=== PATIENT | female | born 1975 | race Caucasian/White ===

== ENCOUNTER 2024-02-22 08:13 | Outpatient (CLI) | payer OTHER, SELFPAY ==
--- OUTSIDE RECORDS SUMMARY | 2024-02-22 08:15 | XMS_ITS | Continuity of Care Document ---
Author Organization [facility] Address [address] [place] [phone] Assessment No assessment recorded. Plan of Treatment Reminders Order Date Submit Date Provider Last Modified By Organization Details Last Modified Time Details Appointments LAB WORK 2023 02:00P M Lab Not available Not available Not available Any 30 2023 09:30A M COLLIN ALONSO MD Not available Not available Not available Lab O&P (ova & parasit es), stool 2023 [facility], [address] [place] [address], [phone], 01/15/2024 08:05:59 C diff toxin A+B, qualita tive, stool 2023 024 [facility], [address] [place] [address], [phone], 01/08/2024 15:53:41 gastroi ntestin al pathoge ns panel, PCR, stool 2023 024 [facility], [address] [place] [address], [phone], 01/08/2024 18:28:51 Referral None recorde d. Procedures None recorde d. Surgeries None recorde d. Imaging None recorde d. Medication Orders Anti-Di arrheal (babs mide) 2 mg tablet [address], [id number], 2023 16:27:54 ondanse huma 4 mg disinte grating tablet 2023 024 [facility], [address] [place] [address], [id number], 01/18/2024 10:10:17 Patient TargetsNo targets recorded. Patient InstructionsNo instructions recorded. 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 Referring Physician: Sharmin Zhao [facility], Encounter Date: 10/15/2021 Problems Name Status Onset Date Resolution Date Notes Provider Name and Address Organization Details Recorded Time Depressive disorder Active 021 Sharmin Zhao NP [address] [facility] [place] [facility] [place], [address] , [employer] 02/17/2021 11:32:16 Cyst of left breast Active 021 benign simple cyst 4 o'clock 8cm from the nipple, measuring 9mm (per L breast U/S 07/01/21) Sharmin Zhao NP [address] [facility] [place], [phone] , [employer] 07/20/2021 19:50:29 Malignant neoplasm of female breast Active 024 Malignant neoplasm of lower-outer quadrant of right breast of female, estrogen receptor negative 10/27/2021 Cancer Staging: Clinical: Stage IIB COLLIN ALONSO MD [address] [facility] [place], [address] , [facility] [employer] 01/18/2024 23:21:12 Problem Notes None recorded. Procedures Surgical History Date Name Laterality Status Provider Name and Address Organization Details Recorded Time 12/25/19 23 Appendectomy completed COLLIN ALONSO MD [address] [facility] [place], [address], [facility] 01/18/2024 23:32:36 05/11/20 22 lumpectomy of right breast completed COLLIN ALONSO MD [address] [facility] [place], [address], [facility] 01/18/2024 23:35:21 10/02/19 20 Date of Last Mammogram completed Sharmin Zhao NP [address] [facility] [place], [address], [facility] 02/17/2021 11:38:30 01/31/20 16 Date of Last Pap Smear completed Sharmin Zhao NP [address] [facility] [place], [address], [facility] 02/17/2021 11:37:41 cholecystectomy completed Sharmin Zhao NP [address] [place], [address], [facility] 02/17/2021 11:35:26 Repair bladder defect completed Sharmin Zhao NP [address] [place], [address], [facility] 02/17/2021 11:36:40 Imaging Results None recorded. Procedure Notes None recorded. Medical Equipment None Reported. Allergies No known drug allergies Medications Name Sig Start Date Stop Date Status Note LastModified by Organization Details LastModified Time vitamin d3 25 mcg (1000 ut) TAKE ONE TABLET BY MOUTH ONCE DAILY 01/17 completed Not Available Not Available Not Available Anti-Diarr heal (loperamid e) 2 mg tablet Take 4 mg (2 tablets) after the first loose bowel movement , and 2 mg (1 tablet) after each loose bowel movement after the first dose has been taken. No more than 8 mg (4 tablets) should be taken in any 24-hour period. 12/24 completed Not Available Not Available Not Available loperamide 2 mg capsule TAKE 2 CAPS BY MOUTH AFTER THE FIRST LOOSE BOWEL MOVEMENT , AND 1 CAP AFTER EACH BOWEL MOVEMENT AFTER THE FIRST DOSE HAS BEEN TAKEN. MAX OF 4 CAPS PER DAY. 12/24 completed Not Available Not Available Not Available cetirizine 10 mg tablet take 1 tablet by oral route every day for runny nose, sneezing , and allergy. 12/17 completed Not Available Not Available Not Available sertraline 100 mg tablet 12/30 completed Not Available Not Available Not Available metronidaz ole 500 mg tablet TAKE 1 TABLET BY MOUTH EVERY 8 HOURS FOR 10 DAYS. 01/17 completed Not Available Not Available Not Available Tessalon Perles 100 mg capsule take 1 capsule by oral route 3 times every day to stop bad cough. 12/17 completed Not Available Not Available Not Available citalopram 20 mg tablet TAKE ONE TABLET BY MOUTH EVERY DAY 04/21 completed Not Available Not Available Not Available omeprazole 20 mg capsule,de layed release TAKE ONE CAPSULE BY MOUTH ONCE DAILY 01/17 completed Not Available Not Available Not Available Prozac 10 mg capsule take 1 capsule by oral route every day 10/28 completed Not Available Not Available Not Available Vitamin D2 1,250 mcg (50,000 unit) capsule take 1 capsule by oral route every week x 3 weeks 10/28 completed Not Available Not Available Not Available ondansetro n 4 mg disintegra ting tablet PLACE 1 TABLET EVERY 8 HOURS BY TRANSLIN GUAL ROUTE NEEDED. 01/17 completed Not Available Not Available Not Available clotrimazo le 1 % topical cream APPLY TO THE AFFECTED AND SURROUND ING AREAS OF SKIN BY TOPICAL ROUTE 2 TIMES PER DAY IN THE MORNING AND EVENING 04/21 completed Not Available Not Available Not Available sertraline 50 mg tablet take 1 tablet by oral route every day 12/30 completed Not Available Not Available Not Available cholecalci ferol (vitamin D3) 25 mcg (1,000 unit) capsule Take 1 capsule every day by oral route. 01/17 completed Not Available Not Available Not Available Bactrim DS 800 mg-160 mg tablet 1 tablet BID x 5 days 10/28 completed Not Available Not Available Not Available Sleep Aid (doxylamin e) 25 mg tablet As Directed for Insomnia 12/17 completed Not Available Not Available Not Available Nexplanon 68 mg subdermal implant Inject by subcutan eous route. 09/29 completed breast pain Not Available Not Available Not Available Mucinex Cold,Flu and Sore Throat 10 mg-20 mg-650 mg/20 mL oral liquid tsp on three times a day 12/30 completed Not Available Not Available Not Available Vitals Date Recorded Body weight Body mass index (BMI) Body height Respiratory rate Oxygen saturation Oxygen saturation in Arterial blood by Pulse oximetry Body temperature Heart rate Systolic blood pressure Diastolic blood pressure Provider Name and Address Organization Details Last Updated DateTime 4 87195.6 5 g 30.4 kg/m2 154.94 cm 22 /min 99 % 99 % 96.4 [degF] 62 /min 138 mm[Hg] 84 mm[Hg] Anya Cavazos [facility] [employer] [facility] 4 16:32:39 Social History Question Answer Notes LastModified by Organizat ion Details LastModified Time Tobacco Smoking Status Never Smoker Letty Briggssima menard [facility] [employer] [facility] 12/30/2020 20:32:17 What Is Your Level Of Alcohol Consumption? None Information not available 02/17/2021 What Is Your Level Of Caffeine Consumption? 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 With Others With And Son Information not available 02/17/2021 How Many Children Do You Have? 2 Information not available 02/17/2021 Are You Sexually Active? Yes Information not available 02/17/2021 Sex: Female Functional Status Question Answer Note LastModified by Organization D etails LastModified Time Are you able to care for yourself? Yes Information n ot available 02/17/2021 What is your exercise level? None Information not available 02/17/2021 Mental Status None recorded. Family History Relationship Description Onset Age of this Age Resolved Age Notes Mother Diabetes mellitus Maternal Grandmother Diabetes mellitus Medical History No medical history recorded. Gynecological History Statement/Question Response Abnormal Pap N Date of Last Mammogram 10/02/2019 Date of LMP 12/26/2020 Sexually Active? Y Menses Monthly N Date of Last Pap Smear 01/31/2016 Current Control Method Implant LMP Approximate Obstetrics History GPAL:G 5 P 3 0 2 2 Type Value Full Term 3 Spontaneous 2 Living 2 Total 5 Immunizations Vaccine Type Date Status Provider Name and Address Organization Details Recorded Time COVID-19, mRNA, LNP-S, PF, 30 mcg/0.3 mL dose 12/16/2020 completed MD Laila ALAS [facility] [place], [address], [facility] 12/14/2023 17:14:28 COVID-19, mRNA, LNP-S, PF, 30 mcg/0.3 mL dose 01/06/2021 completed MD Laila ALAS [facility], [address], [facility] 12/14/2023 17:14:29 COVID-19, mRNA, LNP-S, PF, 30 mcg/0.3 mL dose 09/23/2021 completed MD Laila ALAS [facility], [address], [facility], [facility] 12/14/2023 17:14:29 Pneumococcal conjugate PCV20, polysaccharide [id number] conjugate, adjuvant, PF 12/22/2022 completed MD Laila ALAS [facility], [address], [facility] 12/14/2023 17:14:29 COVID-19, mRNA, LNP-S, bivalent, PF, 30 mcg/0.3 mL dose 12/22/2022 completed MD Laila ALAS [facility], [address], [facility] 12/14/2023 17:14:29 Tdap 10/12/2018 completed MD Laila ALAS [facility], [address], [facility] 12/14/2023 17:14:29 Tdap 03/13/2009 completed MD Laila ALAS [facility], [address], [facility] 12/14/2023 17:14:29 Influenza, seasonal, injectable, preservative free 07/29/2011 completed COLLIN ALONSO MD [facility] [place], [address], [facility], [facility] 12/14/2023 17:14:29 Hep B, adult 11/23/2021 completed COLLIN ALONSO MD [facility] [place], [address], [facility], [facility] 12/14/2023 17:14:29 Hep B, adult 12/30/2021 completed COLLIN ALONSO MD [facility] [place], [address], [facility], [facility] 12/14/2023 17:14:29 influenza, injectable, quadrivalent, preservative free 10/12/2018 completed COLLIN ALONSO MD [address] [place] [address] [place], [address], [facility], [facility] 12/14/2023 17:14:29 influenza, injectable, quadrivalent, preservative free 12/22/2022 completed COLLIN ALONSO MD [address] [place] [address] [place], [address], [facility], [facility] 12/14/2023 17:14:29 Past Encounters Encounter ID Performer Location Encounter Start Date Encounter Closed Date Diagnosis/Indication Diagnosis SNOMED-CT Code [id number] MD [facility] [place] [address] 12/14/2023 16:15:37 12/14/2023 17:04:28 Nausea, vomiting and diarrhea 7997166 Diarrhea [id number] Health Concerns Section Related Observation LastModified by Organization Detai ls LastModified Time None Recorded Concern Status LastModified by Organization Details LastModified Time None Recorded Payers Encounter Date Sequence Insurance Name Policy Number Policy Zhang Covered Member ID Zhang Member ID Guarantor Name 12/14/2023 SLIDING FEE SCHEDULE - DISCOUNT Allison Duckworth Notes Date Note Type Note Provider Name and Address Organization Details Recorded Time 12/14/2023 text/html HPI Notes: 47 you here with nausea and vomiting for 2-3 days. Vomited 3 days ago x 2 - past 2 days not vomiting but still has nausea. Morning has worse symptoms. Taking pepto bismal and keeping fluids down. Has diarrhea also with this - 4-6 stools daily - initially pepto helped. Tried soup yesterday and symptoms returned. Today has had only clear fluids. No blood in stool. No abdominal pain now. No one else at home sick. No exposures known. ROS: chills,no body aches, small amt runny nose and mild ST, no cough, had abdominal pain initially - better now , no problems with urination, LMP Nov 2021 COLLIN ALONSO MD [address] [place], [address], [facility] 12/14/2023 17:20:15 OBGyn Episode No OBEpisode recorded.
--- OUTSIDE RECORDS SUMMARY | 2024-02-22 08:15 | XMS_ITS | Clinical Summary ---
Author Organization [facility] Address [place], [place] [address] Care Team Providers Care Manager Oracle Database Name Role Phone Leonora Lange MD Primary Care Provider Laila Osullivan MD Unavailable Unavailable Dimple Okeefe MD Unavailable [phone] Allergies Active Allergy Reactions Criticality Noted Date Comments Latex Itching 11/11/2021 Unlisted Allergen (Include Detail In Comments) Other - Describe In Comment Field 04/08/2022 Orthodoxy, not open to blood products Medications Medication Sig Dispensed Refills Start Date End Date Status acetaminophen (TYLENOL) 325 mg tablet Take 2 Tablets (650 mg) by mouth every 4 hours if needed for Pain (For mild pain.). Max acetaminophen dose: 4000mg in 24 hrs. 0 12/24/2022 Active lactobacillus combination no.4 (Probiotic) 3 billion cell cap Take by mouth once daily. Active omeprazole 20 mg tabletIndications: Gastroesophageal reflux disease, unspecified whether esophagitis present Take 1 Tablet (20 mg) by mouth once daily. 90 Tablet 1 08/04/2023 Active Active Problems Problem Noted Date Diagnosed Date Hypokalemia 12/23/2022 PNA (pneumonia) 11/30/2022 Obesity (BMI 30-39.9) 11/30/2022 Adrenal insufficiency due to cancer therapy 11/03 Acute appendicitis with perf oration and localized peritonitis, without abscess 11/11/2022 Sepsis 11/11/2022 Colitis 11/10/2022 History of breast cancer 11/10/2022 Malignant neoplasm of lower- outer quadrant of right breast of female, estrogen receptor negative 10/27/2021 Cancer Staging:Clinical:Stage IIB(cT2, cN0(f), cM0, G3, ER-, AL-, HER2-) - Unsigned Pathologic:No Stage Recommended(ypT0, pN0(sn), cM0, G3, ER-, AL-, HER2-) - Signed by Xiomara Her MD on 06/16/2022 Depressive disorder 02/17/2021 FLORA (stress urinary incontinence, female) 2018 Urgency of urination 08/21/2014 Prediabetes 08/05/2014 Female infertility 10/11/2010 Class 1 obesity with serious comorbidity and body mass index (BMI) of 33.0 to 33.9 in adult Encounters Date Type Department Care Team Description 01/09/2024 Orders Only [facility] Scanner 1 scan: (1-Ord) [facility], O and P FECAL RESULTS, 01/09/2024 12/22/2023 Orders Only [facility] Scanner 1 scan: (1-Ord) [facility], MULTIPLE RESULTS, 12/22/2023 12/22/2023 Orders Only [facility] Scanner 1 scan: (1-Ord) [facility], CDIFF, 12/22/2023 from Last 3 Months Immunizations Name Administration Dates Next Due COVID-19 vaccine ([employer] 30mcg/0.3mL) 12YO+ BIVALENT DICK MDAlba 12/22/2022 COVID-19 vaccine ([employer] 30mcg/0.3mL) PFRIK 09/23/2021,01/06/2021,12/16/2020 Hepatitis B (Adult) 12/30/2021,11/23/2021 Influenza, IIV3 (Age 6-35 mos) 07/29/2011 Influenza, IIV4 12/22/2022,10/12/2018 Pneumococcal Conj 20-valent (Prevnar 20) 023 Tdap 10/12/2018,03/13/2009 Family History Medical History Relation Name Comments Diabetes Father Diabetes Mother 60 yr old Cancer-breast No Family History Cancer-colon No Family History Cancer-ovarian No Family History Cancer-prostate No Family History Relation Name Status Comments Father Mother Social History Tobacco Use Types Packs/Day Years Used Date Smoking Tobacco: Never Passive Smoke Exposure: Past Smokeless Tobacco: Never Tobacco Cessation:Counseling Given: Not Answered Alcohol Use Standard Drinks/Week Comments No 0 (1 standard drink = 0.6 oz pur e alcohol) none PHQ-2 Answer Date Recorded PHQ-2 Score 5 11/25/2019 Social Connections Answer Date Recorded Frequency of Communication with Friends and Fami ly Not on file 09/22/2021 Financial Resource Strain Answer Date R ecorded Difficulty of Paying Living Expenses Not on file 09/22/2021 Difficulty of Paying Living Expenses Not on file 09/22/2021 Sex and Gender Information Value Date Recorded Sex Assigned at Not on file Gender Identity Not on file Sexual Orientation Not on file Obstetrics History Para Term AB IAB SAB Ectopic Multiple Livin g Live Births 5 3 3 0 2 0 2 0 0 3 3 Date Outcome GA Total Labor Labor/2nd/3rd Weight Sex Delivery Anes PTL Audrey A1 A5 Name Cl in SAB Feta l Fadumo se SAB Feta l Fadumo se Term Vag Sveta ng 12/05 Term 40w 0d 8h 00m/ 2.78 kg (6 lb 2 oz) M Vag Sveta ng 11/09 Term 38w 0d 2h 00m/ 2.72 kg (6 lb) M Vag Sveta ng Last Filed Vital Signs Vital Sign Reading Time Taken Comments Blood Pressure 114/68 08/17/2023 10:24 AM HIDE BUFFER Pulse 62 08/17/2023 10:15 AM HIDE BUFFER Temperature 37.3 ??C (99.1 ??F) 08/17/2023 1 0:15 AM HIDE BUFFER Respiratory Rate 16 08/17/2023 10:1 5 AM HIDE BUFFER Oxygen Saturation 100% 08/17/2023 10: 15 AM HIDE BUFFER Inhaled Oxygen Concentration - - Weight 76.5 kg (168 lb 11.2 oz) 023 10:15 AM HIDE BUFFER Height 154.9 cm (5' 0.98) 08/17/2023 1 0:15 AM HIDE BUFFER Body Mass Index 31.89 08/17/2023 10:15 AM HIDE BUFFER Plan of Treatment Health Maintenance Due Date Last Done Comments Pap test for age 21-65 08/21/2018 5, 08/21/2015, 03/13/2012, Additional history exists Colonoscopy through age 75 2018 Depression screening for age 12+ 11/26/2020 11/26/2019, 11/25/2019, 10/15/2018, Additional history exists COVID-19 vaccine series ( season) 2023 12/22/2022, 09/23/2021, 01/06/2021, Additional history exists Lipids for age 45-75 10/12/2023 10/12/2018, 08/05/2014, 07/27/2010 Zoster (shingles) series for age 50+ (1 of 2) 12/26/2023 Mammogram for age 45-75 04/18/2024 04/18/20, 10/27/2022, 10/11/2021, Additional history exists Influenza for age 50-64 06/02/2024 12/22/2022, 10/12 BMI (ht and wt on same day) for age 18+ 08/17/2024 08/17/2023, 08/04/2023, 04/18/2023, Additional history exists Tetanus booster 10/12/2028 10/12/2018, 03/13/2009 HIV for age 15-65 Completed 07/21/2011, 01/25/2011 Tdap Completed 10/12/2018, 03/13/2009 Hepatitis C screening for age 18-79 Completed 11/01/2021 Pneumococcal series for age 6-64 Aged Out 12/22/2022 No longer eligible based on patient's age to complete this topic Medical Devices Implanted Type Area Logistics Lead Device Identifier Shelf Expiration Date Model / Serial / Lot Sling Pelvic Exact Retropubic Continence - [id number] Implanted:Qty: 1 on 03/19/2019 by Hannah Cramer MD at [facility] N/A: Urethra J [employer] J [employer] Womens H / Uro 08/01/2019 TVTRL# / / [id number] Port Low Profile Slim W/6fr 1lmn Power[employer] - [id number] Implanted:Qty: 1 on 11/11/2021 by Laila Osullivan MD at [facility] Left: Chest [employer] 01/29/2023 [id number] / / [id number] Procedures Procedure Name Priority Date/Time Associated Diagnosis Comments SCAN-LABORATORY REPORT 01/09/2024 12:00 AM CDT SCAN-LABORATORY REPORT 12/22/2023 12:00 AM CDT SCAN-LABORATORY REPORT 12/22/2023 12:00 AM CDT XR MAMMO SOHAM UNI DIAG RIGHT STAT 04/18/2023 1:52 PM CDT Malignant neoplasm of lower-outer quadrant of right female breast, unspecified estrogen receptor status (HC) Breast pain, right ANTI HCV Today 11/01/2021 4:13 PM HIDE BUFFER Malignant neoplasm of right female breast, unspecified estrogen receptor status, unspecified site of breast (HC) LIPID PANEL W REFLEX MEASURED LDL Routine 10/12/2018 9:58 AM HIDE BUFFER Lipid screening BARREL PAINTER THIN PREP PAP SCREEN IMAGED Routine 08/21/2015 12:19 PM HIDE BUFFER Cervical cancer screening ANTI HIV 1/2 Routine 07/21/2011 10:22 AM CDT state, incidental from Last 3 Months or Most Recently Relevant to Health Maintenance Results * SCAN-LABORATORY REPORT (01/09/2024 12:00 AM CDT) Only the most recent of3 resultswithin the time period is included. Scanner OTHER * XR MAMMO SOHAM UNI DIAG RIGHT (04/18/2023 1:52 PM CDT) Anatomical Region Laterality Modality BREASTS, Breast Right Mammograph y 04/18/2023 2:43 PM CDT Impressions 04/18/2023 3:41 PM CDT Mild subcutaneous edema and skin thickening at 8 o'clock, 7 cm from the nipple in the RIGHT breast consistent with postradiation change. No suspicious cystic or solid mass or drainable fluid collection. RECOMMENDATIONS: Clinical follow-up is recommended. Annual BILATERAL screening mammogram is due October 2023. Results and recommendations were discussed with the patient at the time of the exam. BI-RADS Category 2: Benign Dictated by: Lucinda Forrester MD @04/18/2023 2:43:50 PM / CRL:tung PATIENTS: You will also receive a letter with your examination results in an easy to read format. ??If you have questions about your results, please contact your referring provider. Narrative 04/18/2023 3:41 PM CDT For Patients: As a result of the Cures Act, medical imaging exams and procedure reports are released immediately into your electronic medical record. ??You may view this report before your referring provider. ?? If you have questions, please contact your health care provider. DIGITAL DIAGNOSTIC RIGHT MAMMOGRAM USING TOMOSYNTHESIS AND COMPUTER-AIDED DETECTION, 04/18/2023 RIGHT BREAST ULTRASOUND, 04/18/2023 CLINICAL HISTORY: Focal pain at 4 o'clock and 7-8 o'clock in the RIGHT breast. Previous history of RIGHT breast cancer treated with lumpectomy and radiation therapy in May 2022. COMPARISON: Mammograms 10/27/2022 and 11/06/2019. TECHNIQUE: Digital RIGHT mammogram in CC and MLO projections. Tomosynthesis and CAD were used. Real-time ultrasound imaging of the RIGHT breast with imaging documentation. Scanning was performed by both the technologist and the radiologist. BREAST COMPOSITION: The breast is heterogeneously dense, which may obscure small masses. FINDINGS: Mammogram: There are expected post treatment changes including mild skin thickening over the outer breast. No suspicious masses, areas of architectural distortion or microcalcifications. Ultrasound: Targeted ultrasound of the lower outer and lower inner RIGHT breast is performed for the areas of pain as directed by the patient. Sas Architect images are saved at 4 o'clock, 5 cm from the nipple and 8 o'clock, 7 cm from the nipple. At the 8 o'clock location there is minimal skin thickening measuring up to 4 mm and subcutaneous edema. No suspicious cystic or solid mass or drainable fluid collection. Linda Messina NP MAMMO * ANTI HCV (11/01/2021 4:13 PM HIDE BUFFER) HEPATITIS C ANTIBODY Non-React stuart Non-React stuart 11/02/2021 1:04 AM HIDE BUFFER [facility] Comment:Antibodies to HCV no t detected; does not exclude the possibility of exposure to HCV. Blood BLOOD SPECIMEN / Unknown Venipuncture / Unknown 11/01/2021 4:13 PM HIDE BUFFER 11/01/2021 4:13 PM HIDE BUFFER Dimple Okeefe MD SEND OUTS [facility] [address] [place] [address], [place] * LIPID PANEL W REFLEX MEASURED LDL (10/12/2018 9:58 AM HIDE BUFFER) CHOLESTEROL,TOTAL 138 100 - 199 mg/dL 10/12/2018 6:01 PM HIDE BUFFER [facility] TRIGLYCERIDES 85 <150 mg/dL 10/12/2018 6:01 PM HIDE BUFFER [facility] HDL CHOLESTEROL 42 >40 mg/dL 9 6:01 PM HIDE BUFFER [facility] NON-HDL CHOLESTEROL 96 <145 mg/dl 10/12/2018 6:01 PM HIDE BUFFER [facility] CHOL/HDL RATIO 3.29 <4.50 10/12/2018 6:01 PM HIDE BUFFER [facility] LDL CHOLESTEROL 79 <=130 mg/dL 10/12/2018 6:01 PM HIDE BUFFER [facility] PROVIDER ORDERED STATUS RANDOM 10/12/2018 6:01 PM HIDE BUFFER [facility] Blood BLOOD SPECIMEN / Unknown Venipuncture / Unknown 10/12/2018 9:58 AM HIDE BUFFER 10/12/2018 9:58 AM HIDE BUFFER Leonora Lange MD CHEMISTRY [facility] [address] [place] [address], [place] * BARREL PAINTER THIN PREP PAP SCREEN IMAGED (08/21/2015 12:19 PM HIDE BUFFER) BARREL PAINTER CYTOLOGY See Anatomic Pathology case 08/26/2015 1:01 PM HIDE BUFFER [facility] Specimen (specimen) Non-Blood / Unknown 08/21/2015 12:19 PM HIDE BUFFER 08/21/2015 12:19 PM HIDE BUFFER Leonora Lange MD PATHOLOGY/CYTOL OGY [facility] [address] [place] [address], [place] * ANTI HIV 1/2 (07/21/2011 10:22 AM CDT) ANTI HIV 1/2 Non-reacti ve [facility] Blood specimen (specimen) BLOOD SPECIMEN / Unknown 07/21/2011 10:22 AM CDT 07/21/2011 10:13 AM CDT Leonora Lange MD SEND OUTS [facility] [place]NAL ZIP [id number] [address] from Last 3 Months or Most Recently Relevant to Health Maintenance Advance Directives Documents on File Type Date Recorded Patient Sas Architect Expl anation Healthcare Directive 04/12/2022 04/12/20, 04/12/2022 * Full Code (Latest Code Status on File) Date Activated Date Inactivated Comments 12/24/2022 7:02 AM 12/24/2022 4:02 PM Question Answer Comments Code Status Discussion: Reviewed Preferences * Full Code Date Activated Date Inactivated Comments 12/23/2022 6:27 PM 12/24/2022 7:02 AM Question Answer Comments Code Status Discussion: Reviewed Preferences * Full Code Date Activated Date Inactivated Comments 11/30/2022 8:58 PM 12/02/2022 6:32 PM Question Answer Comments Code Status Discussion: Reviewed Preferences * Full Code Date Activated Date Inactivated Comments 11/12/2022 12:48 AM 11/16/2022 3:39 PM Question Answer Comments Code Status Discussion: Reviewed Preferences * Full Code Date Activated Date Inactivated Comments 11/10/2022 12:56 AM 11/11/2022 11:54 PM Question Answer Comments Code Status Discussion: Reviewed Preferences Care Teams Manager Oracle Database Relationship Specialty Start Date End Date Leonora Lange MD [address] [place] [address] PCP - General Family Practice 07/19/11 Laila Osullivan MD [address] [place] [address] Surgery - General 10/20/21 Dimple Okeefe MD [address] [place] [address], [id number] [place] [address] Oncology 11/16/21
--- OUTSIDE RECORDS SUMMARY | 2024-02-22 08:15 | XMS_ITS | Continuity of Care Document ---
Author Organization [facility] Address [address] [place] [id number] Assessment No assessment recorded. Plan of Treatment Reminders Order Date Submit Date Provider Last Modified By Organization Details Last Modified Time Details Appointments LAB WORK 2023 02:00P M Lab Not available Not available Not available Any 30 2023 09:30A M COLLIN ALONSO MD Not available Not available Not available Lab C diff toxin A+B, qualita tive, stool 2023 024 [facility], [address] [place] [address], [phone], 01/18/2024 11:19:10 CMP, serum or plasma 2023 024 [facility], [address] [place] [address], [phone], 01/26/2024 15:28:10 TSH, serum, reflex free T4 2023 024 [facility], [address] [place] [address], [phone], 01/26/2024 15:28:43 H pylori Ag, stool 2023 024 [facility], [address] [place] [address], [phone], 01/26/2024 15:27:55 CBC w/ auto diff 2023 024 [facility], [address] [place], [phone], 01/18/2024 11:19:35 hemoglo bin A1C/hem oglobin total, QN, blood 2023 024 [facility], [address] [place], [phone], 01/18/2024 11:19:48 Referral None recorde d. Procedures None recorde d. Surgeries None recorde d. Imaging MAMMO, screeni ng, digital , bilater al 2023 024 [email or web address] Not available 02/15/2024 11:42:47 Medication Orders None recorde d. Patient TargetsNo targets recorded. 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 02/17/2021 11:32:16 Cyst of left breast Active 021 benign simple cyst 4 o'clock 8cm from the nipple, measuring 9mm (per L breast U/S 07/01/21) Sharmin Zhao NP [address] [place], [address] , [place] - [employer] 07/20/2021 19:50:29 Malignant neoplasm of female breast Active 024 Malignant neoplasm of lower-outer quadrant of right breast of female, estrogen receptor negative 10/27/2021 Cancer Staging: Clinical: Stage IIB COLLIN ALONSO MD [address] [facility] [place], [phone] , [facility] 01/18/2024 23:21:12 Problem Notes None recorded. Procedures Surgical History Date Name Laterality Status Provider Name and Address Organization Details Recorded Time 12/25/19 23 Appendectomy completed COLLIN ALONSO MD [address] [place] [address] [place], [address], [facility] 01/18/2024 23:32:36 05/11/20 22 lumpectomy of right breast completed COLLIN ALONSO MD [address] [place] [address] [place], [address], [facility] 01/18/2024 23:35:21 10/02/19 20 Date of Last Mammogram completed Sharmin Zhao NP [address] [place], [place] [address], [address], [facility] [employer] 02/17/2021 11:38:30 01/31/20 16 Date of Last Pap Smear completed Sharmin Zhao NP [address] [place] [address], [phone], [facility] 02/17/2021 11:37:41 cholecystectomy completed Sharmin Zhao NP [address] [place] [address], [phone], [facility] 02/17/2021 11:35:26 Repair bladder defect completed Sharmin Zhao NP [address] [place] [address], [phone], [facility] 02/17/2021 11:36:40 Imaging Results None recorded. Procedure [...] Available Not Available Vitals Date Recorded Body height Body mass index (BMI) Body weight Body temperature Oxygen saturation Oxygen saturation in Arterial blood by Pulse oximetry Heart rate Systolic blood pressure Diastolic blood pressure Provider Name and Address Organization Details Last Updated DateTime 4 154.94 cm 31.5 kg/m2 66943.2 1 g 96.3 [degF] 98 % 98 % 64 /min 141 mm[Hg] 86 mm[Hg] Mine Ocho[facility] [employer] [facility] 4 10:09:12 Social History Question Answer Notes LastModified by Organizat ion Details LastModified Time Tobacco Smoking Status Never Smoker Letty menard [facility] [employer] [facility] 12/30/2020 20:32:17 What Is Your Level [...] 02/17/2021 What is your exercise level? None [email or web address] Information not available 02/17/2021 Mental Status None [...] PF, 30 mcg/0.3 mL dose 12/16/2020 completed COLLIN ALONSO MD [address] [place] [address], [phone], [facility] [employer] 12/14/2023 17:14:28 COVID-19, mRNA, LNP-S, PF, 30 mcg/0.3 mL dose 01/06/2021 completed COLLIN ALONSO MD [address] [place] [address], [phone], [facility] [employer] 12/14/2023 17:14:29 COVID-19, mRNA, LNP-S, PF, 30 mcg/0.3 mL dose 09/23/2021 completed COLLIN ALONSO MD [address] [place] [address], [phone], [facility] [employer] 12/14/2023 17:14:29 Pneumococcal conjugate PCV20, polysaccharide [id number] conjugate, adjuvant, PF 12/22/2022 completed COLLIN ALONSO MD [address] [place] [address], [phone], [facility] 12/14/2023 17:14:29 COVID-19, mRNA, LNP-S, bivalent, PF, 30 mcg/0.3 mL dose 12/22/2022 completed COLLIN ALONSO MD [address] [place], [phone], [facility] 12/14/2023 17:14:29 Tdap 10/12/2018 completed COLLIN ALONSO MD [address] [place] [address] [place], [address], [facility] 12/14/2023 17:14:29 Tdap 03/13/2009 completed COLLIN ALONSO MD [address] [place] [address] [place], [phone], [facility] 12/14/2023 17:14:29 Influenza, seasonal, injectable, preservative free 07/29/2011 completed COLLIN ALONSO MD [address] [place] [address] [place], [address], [facility] 12/14/2023 17:14:29 Hep B, adult 11/23/2021 completed COLLIN ALONSO MD [address] [place] [address] [place], [phone], [facility] 12/14/2023 17:14:29 Hep B, adult 12/30/2021 completed COLLIN ALONSO MD [address] [place] [address] [place], [address], [facility] 12/14/2023 17:14:29 influenza, injectable, quadrivalent, preservative free 10/12/2018 completed COLLIN ALONSO MD [address] [place] [address] [place], [address], [facility] 12/14/2023 17:14:29 influenza, injectable, quadrivalent, preservative free 12/22/2022 completed COLLIN ALONSO MD [address] [place] [address] [place], [phone], [facility] 12/14/2023 17:14:29 Past Encounters Encounter ID Performer Location Encounter Start Date Encounter Closed Date Diagnosis/Indication Diagnosis SNOMED-CT Code [id number] MD [facility] [address] [place] [address] ERICKA PRATT KAREN [id number] 01/18/2024 10:03:22 01/18/2024 10:32:57 Diarrhea 63874005 Epigastric pain 53407712 History of malignant neoplasm of breast 886824072 Diabetes m ellitus screening 284697823 Elevated blood-pressure reading without diagnosis of hypertension 909520208 Health Concerns Section Related Observation LastModified by Organization Detai ls LastModified Time None Recorded Concern Status LastModified by Organization Details LastModified Time None Recorded Payers Encounter Date Sequence Insurance Name Policy Number Policy Zhang Covered Member ID Zhang Member ID Guarantor Name 01/18/2024 SLIDING FEE SCHEDULE - DISCOUNT Allison Faraz Duckworth Notes Date Note Type Note Provider Name and Address Organization Details Recorded Time 01/18/2024 text/html HPI Notes: 47 yo nepali speaking patient here for follow up of vomiting/diarrhea. Mine interpreting. Patient seen 1 month ago. Stool tests done at the time positive for C diff and Norovirus was having 4-6 stools daily at that time. Prescribed metronidazole therapy and reports that she finished the antibiotics. reports that things improved but that she still has some episodes of sensitive stomach and diarrhea. Estimates that she still has liquid stool every day or every other day multiple episodes. Patient also concerned about possible H pylori infection. Has some epigastric discomfort and acid. Patients PMH significant for hx of breast cancer - diagnosed Oct 2021 s/p chemo and lumpectomy. Patient reports that she lost her insurance and has not had mammogram follow up this year. Reviewed [facility] records and Last bilateral mammogram Oct 2022. Had unlateral R mammo for pain fall 2022. Also had CT scan chest/abdomen fall 2022 which was without evidence for malignancy. Had stable pulmonary nodule. COLLIN ALONSO MD [address] [place], [address], [facility] - [facility] 01/18/2024 23:49:50 OBGyn Episode No OBEpisode recorded.
--- NOTE | 2024-02-22 08:45 | CRLHL7_ITS ---
For Patients: As a result of the Century Cures Act, medical imaging exams and procedure reports are released immediately into your electronic medical record. You may view this report before your referring provider. If you have questions, please contact your health care provider. BILATERAL SCREENING MAMMOGRAM WITH COMPUTER-AIDED DETECTION AND TOMOSYNTHESIS TECHNIQUE: CC and MLO views were obtained. These mammographic images have been obtained using full-field digital technique. These mammographic images were interpreted with the benefit of computer-aided detection. Breast Tomosynthesis was used in this interpretation. COMPARISON FILM: 06/16/21, 11/06/19, 02/06/18. FINDINGS: The breasts are heterogeneously dense, which may obscure small masses. IMPRESSION: There is no radiographic evidence for malignancy. ASSESSMENT: BI-RADS Category 2: Benign RECOMMENDATION: Routine screening mammogram in 1 year. A lay language report of this examination will be provided to the patient. Luis Alfredo Sood M.D. Diagnostic Radiologist [email or web address] SP/Dictated by: Luis Alfredo Sood MD @ 02/22/2024 12:47:00 PM (Electronically Signed)
--- OUTSIDE RECORDS SUMMARY | 2024-02-29 09:18 | XMS_ITS | Continuity of Care Document ---
Author Organization [facility] Address [address] [place] [address] [place] [address] Assessment No assessment recorded. Plan of Treatment Reminders Order Date Submit Date Provider Last Modified By Organization Details Last Modified Time Details Appointments None recorded . Lab C diff toxin A+B, qualitat stuart, stool [facility]23 [facility] [address] [place], [place] [address], [address], 4 15:28:52 CMP, serum or plasma 2023 024 [facility], [address] [place] [address], [phone], 4 15:30:00 TSH, serum, reflex free T4 2023 024 [facility], [address] [place] [address], [phone], 4 15:30:09 H pylori Ag, stool 2023 024 [facility], [address] [place] [address], [phone], 4 15:29:27 CBC w/ auto diff 2023 024 [facility], [address] [place] [address] [place], [address], 4 15:29:37 hemoglob in A1C/hemo globin total, QN, blood 2023 024 [facility] [place] [facility], [address] [place], [address], 4 15:29:49 Referral None recorded . Procedures None recorded . Surgeries None recorded . Imaging MAMMO, screenin g, digital, bilatera l 2023 024 [facility] Not available 4 15:29:15 Medication Orders None recorded . Patient TargetsNo targets recorded. 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 Referring Physician: Sharmin Zhao [facility] Medicine, Encounter Date: 10/15/2021 Breast Surgery Referral for Primary invasive malignant neoplasm of female breast 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 Referring Physician: Sharmin Zhao [facility] Cindy, Encounter Date: 10/15/2021 Problems Name Status Onset Date Resolution Date Notes Provider Name and Address Organization Details Recorded Time Depressive disorder Active 021 Sharmin Zhao NP [address] [place], [address] , [place] 02/17/2021 11:32:16 Cyst of left breast Active 021 benign simple cyst 4 o'clock 8cm from the nipple, measuring 9mm (per L breast U/S 07/01/21) Sharmin Zhao NP [address] [place], [address] , [facility] 07/20/2021 19:50:29 Malignant neoplasm of female breast Active 024 Malignant neoplasm of lower-outer quadrant of right breast of female, estrogen receptor negative 10/27/2021 Cancer Staging: Clinical: Stage IIB COLLIN ALONSO MD [address] [facility] [place], [address] , [facility] 01/18/2024 23:21:12 Problem Notes None recorded. Procedures Surgical History Date Name Laterality Status Provider Name and Address Organization Details Recorded Time 12/25/19 23 [place] [address] [place] [address] [place], [address], [facility] 01/18/2024 23:32:36 05/11/20 22 lumpectomy of right breast completed COLLIN ALONSO MD [address] [place], [place] [address], [address], [facility] 01/18/2024 23:35:21 10/02/19 20 Date of [place] [address] [place], [place] [address], [address], [facility] 02/17/2021 11:38:30 01/31/20 16 Date of [place] [address] [place], [place] [address], [address], [facility] 02/17/2021 11:37:41 [place] [address] [place] [address] [place], [address], [facility] 02/17/2021 11:35:26 Repair bladder defect completed Sharmin Zhao NP [address] [place] [address], [address], [facility] 02/17/2021 11:36:40 Imaging Results None recorded. [...] Updated DateTime 4 154.94 cm 31.5 kg/m2 51663.2 1 g 96.3 [degF] 98 % 98 % 64 /min 141 mm[Hg] 86 mm[Hg] Mine Ochoa [facility] [employer] [facility] 4 10:09:12 Social History Question Answer Notes LastModified by Organizat ion Details LastModified Time Tobacco Smoking Status Never Smoker Letty [place] - [facility] 12/30/2020 20:32:17 What Is Your Level Of [...] mL dose 12/16/2020 [place] [address] [place] [address], [phone], [facility] 12/14/2023 17:14:28 COVID-19, mRNA, LNP-S, PF, 30 mcg/0.3 mL dose 01/06/2021 [place] [address] [place] [address], [phone], [facility] [employer] 12/14/2023 17:14:29 COVID-19, mRNA, LNP-S, PF, 30 mcg/0.3 mL dose 09/23/2021 [place] [address] [place] [address], [phone], [facility] 12/14/2023 17:14:29 Pneumococcal conjugate PCV20, polysaccharide [id number] conjugate, adjuvant, PF 12/22/2022 [place] [address] [place] [address], [phone], [facility] [employer] 12/14/2023 17:14:29 COVID-19, mRNA, LNP-S, bivalent, PF, 30 mcg/0.3 mL dose 12/22/2022 [place] [address] [place] [address], [phone], [facility] 12/14/2023 17:14:29 Tdap 10/12/2018 completed COLLIN ALONSO MD [address] [place], [address], [facility] 12/14/2023 17:14:29 Tdap 03/13/2009 completed COLLIN ALONSO MD [address] [place], [address], [facility] 12/14/2023 17:14:29 Influenza, seasonal, injectable, preservative free 07/29/2011 completed COLLIN ALONSO MD [address] [place] [address] [place], [address], [facility] 12/14/2023 17:14:29 Hep B, adult 11/23/2021 completed COLLIN ALONSO MD [address] [place] [address] [place], [address], [facility] 12/14/2023 17:14:29 Hep B, adult 12/30/2021 completed COLLIN ALONSO MD [address] [place] [address] [place], [address], [facility] 12/14/2023 17:14:29 influenza, injectable, quadrivalent, preservative free 10/12/2018 completed COLLIN ALONSO MD [address] [place] [address] [place], [address], [facility] 12/14/2023 17:14:29 influenza, injectable, quadrivalent, preservative free 12/22/2022 completed COLLIN ALONSO MD [address] [place] [address] [place], [address], [facility] 12/14/2023 17:14:29 Past Encounters Encounter ID Performer Location Encounter Start Date Encounter Closed Date Diagnosis/Indication Diagnosis SNOMED-CT Code [id number] MD [facility] [address] [place] [address] ERICKA MEDRANOKAREN [place]MP[place]RIES [id number] 01/18/2024 10:03:22 01/18/2024 10:32:57 Diarrhea [id number] Epigastric pain [id number] History of malignant neoplasm of breast 872370816 Diabetes m ellitus screening 106801024 Elevated blood-pressure reading without diagnosis of hypertension [id number] Health Concerns Section Related Observation LastModified by Organization Detai ls LastModified Time None Recorded Concern Status LastModified by Organization Details LastModified Time None Recorded Payers Encounter Date Sequence Insurance Name Policy Number Policy Zhang Covered Member ID Zhang Member ID Guarantor Name 01/18/2024 SLIDING FEE SCHEDULE - DISCOUNT Allison Duckworth Notes Date Note Type Note Provider Name and Address Organization Details Recorded Time 01/18/2024 text/html HPI Notes: 47 yo pashto speaking patient here for follow up of vomiting/diarrhea. Mine montez. Patient seen 1 month ago. Stool tests [...] Had stable pulmonary nodule. COLLIN ALONSO MD [facility] [place], [address], [facility] 01/18/2024 23:49:50 OBGyn Episode No OBEpisode recorded.
--- OUTSIDE RECORDS SUMMARY | 2024-02-29 09:18 | XMS_ITS | Clinical Summary ---
Author Organization [facility] Address [place], [place] [address] Care Team Providers Care Scientist Electronics Name Role Phone Leonora Lange MD Primary Care Provider Laila Osullivan MD Unavailable Unavailable Dimple Okeefe MD Unavailable Allergies Active Allergy Reactions Criticality Noted Date Comments Latex Itching 11/11/2021 Unlisted Allergen (Include Detail In Comments) Other - Describe In Comment Field 04/08/2022 Cheondoism, not open to blood products Medications Medication [...] Cancer Staging:Clinical:Stage IIB(cT2, cN0(f), cM0, G3, ER-, HI-, HER2-) - Unsigned Pathologic:No Stage Recommended(ypT0, pN0(sn), cM0, G3, ER-, HI-, HER2-) - Signed by Xiomara Her MD on 06/16/2022 Depressive disorder 02/17/2021 FLORA (stress urinary incontinence, female) 2018 Urgency of urination 08/21/2014 Prediabetes 08/05/2014 Female infertility 10/11/2010 Class 1 obesity with serious comorbidity and body mass index (BMI) of 33.0 to 33.9 in adult Encounters Date Type Department Care Team Description 01/09/2024 Orders Only [facility] Scanner 1 scan: (1-Ord) [facility], O and P FECAL RESULTS, 01/09/2024 12/22/2023 Orders Only [facility] Scanner 1 scan: (1-Ord) [facility], MULTIPLE RESULTS, 12/22/2023 12/22/2023 Orders Only [facility] Scanner 1 scan: (1-Ord) [facility], CDIFF, 12/22/2023 from Last 3 Months Immunizations Name Administration Dates Next Due COVID-19 vaccine ([employer] 30mcg/0.3mL) 12YO+ BIVALENT DICK MDAlba 12/22/2022 COVID-19 vaccine ([employer] 30mcg/0.3mL) PFRIK 09/23/2021,01/06/2021,12/16/2020 Hepatitis B (Adult) [...] Comments Blood Pressure 114/68 08/17/2023 10:24 AM CONTINUITY CLERK Pulse 62 08/17/2023 10:15 AM CONTINUITY CLERK Temperature 37.3 ??C (99.1 ??F) 08/17/2023 1 0:15 AM CONTINUITY CLERK Respiratory Rate 16 08/17/2023 10:1 5 AM CONTINUITY CLERK Oxygen Saturation 100% 08/17/2023 10: 15 AM CONTINUITY CLERK Inhaled Oxygen Concentration - - Weight 76.5 kg (168 lb 11.2 oz) 023 10:15 AM CONTINUITY CLERK Height 154.9 cm (5' 0.98) 08/17/2023 1 0:15 AM CONTINUITY CLERK Body Mass Index 31.89 08/17/2023 10:15 AM CONTINUITY CLERK Plan of Treatment Health Maintenance Due Date [...] this topic Medical Devices Implanted Type Area Inside Wirer Device Identifier Shelf Expiration Date Model / Serial / Lot Sling Pelvic Exact Retropubic Continence - [id number] Implanted:Qty: 1 on 03/19/2019 by Hannah Cramer MD at [facility] N/A: Urethra J [employer] Womens H / Uro 08/01/2019 TVTRL# / / [id number] Port Low Profile Slim W/6fr 1lmn [employer] - [id number] Implanted:Qty: 1 on 11/11/2021 by Laila Osullivan MD at [facility] Left: Chest [employer] 01/29/2023 [id number] / / [id number] Procedures Procedure Name Priority Date/Time Associated Diagnosis Comments SCAN-LABORATORY REPORT 01/09/2024 12:00 AM CDT SCAN-LABORATORY REPORT 12/22/2023 12:00 AM CDT SCAN-LABORATORY REPORT 12/22/2023 12:00 AM CDT XR MAMMO SOHAM UNI DIAG RIGHT STAT 04/18/2023 1:52 PM CDT Malignant neoplasm of lower-outer quadrant of right female breast, unspecified estrogen receptor status (HC) Breast pain, right ANTI HCV Today 11/01/2021 4:13 PM CONTINUITY CLERK Malignant neoplasm of right female breast, unspecified estrogen receptor status, unspecified site of breast (HC) LIPID PANEL W REFLEX MEASURED LDL Routine 10/12/2018 9:58 AM CONTINUITY CLERK Lipid screening ORDER DISPATCHER CHIEF THIN PREP PAP SCREEN IMAGED Routine 08/21/2015 12:19 PM CONTINUITY CLERK Cervical cancer screening ANTI HIV 1/2 Routine [...] of pain as directed by the patient. Assurance Senior Manager images are saved at 4 o'clock, 5 cm from the nipple and 8 o'clock, 7 cm from the nipple. At the 8 o'clock location there is minimal skin thickening measuring up to 4 mm and subcutaneous edema. No suspicious cystic or solid mass or drainable fluid collection. Linda Messina NP MAMMO * ANTI HCV (11/01/2021 4:13 PM CONTINUITY CLERK) HEPATITIS C ANTIBODY Non-React stuart Non-React stuart 11/02/2021 1:04 AM CONTINUITY CLERK [facility] Comment:Antibodies to HCV no t detected; does not exclude the possibility of exposure to HCV. Blood BLOOD SPECIMEN / Unknown Venipuncture / Unknown 11/01/2021 4:13 PM CONTINUITY CLERK 11/01/2021 4:13 PM CONTINUITY CLERK Dimple Okeefe MD SEND OUTS [facility] [address] [place] [address], [place] * LIPID PANEL W REFLEX MEASURED LDL (10/12/2018 9:58 AM CONTINUITY CLERK) CHOLESTEROL,TOTAL 138 100 - 199 mg/dL 10/12/2018 6:01 PM CONTINUITY CLERK [facility] TRIGLYCERIDES 85 <150 mg/dL 10/12/2018 6:01 PM CONTINUITY CLERK [facility] HDL CHOLESTEROL 42 >40 mg/dL 9 6:01 PM CONTINUITY CLERK [facility] NON-HDL CHOLESTEROL 96 <145 mg/dl 10/12/2018 6:01 PM CONTINUITY CLERK [facility] CHOL/HDL RATIO 3.29 <4.50 10/12/2018 6:01 PM CONTINUITY CLERK [facility] LDL CHOLESTEROL 79 <=130 mg/dL 10/12/2018 6:01 PM CONTINUITY CLERK [facility] PROVIDER ORDERED STATUS RANDOM 10/12/2018 6:01 PM CONTINUITY CLERK [facility] Blood BLOOD SPECIMEN / Unknown Venipuncture / Unknown 10/12/2018 9:58 AM CONTINUITY CLERK 10/12/2018 9:58 AM CONTINUITY CLERK Leonora Lange MD CHEMISTRY [facility] [address] [place] [address], [place] * ORDER DISPATCHER CHIEF THIN PREP PAP SCREEN IMAGED (08/21/2015 12:19 PM CONTINUITY CLERK) ORDER DISPATCHER CHIEF CYTOLOGY See Anatomic Pathology case 08/26/2015 1:01 PM CONTINUITY CLERK [facility] Specimen (specimen) Non-Blood / Unknown 08/21/2015 12:19 PM CONTINUITY CLERK 08/21/2015 12:19 PM CONTINUITY CLERK Leonora Lange MD PATHOLOGY/CYTOL OGY [facility] [address] [place] [address], [place] * ANTI HIV 1/2 (07/21/2011 10:22 AM CDT) ANTI HIV 1/2 Non-reacti ve [facility] Blood specimen (specimen) BLOOD SPECIMEN / Unknown 07/21/2011 10:22 AM CDT 07/21/2011 10:13 AM CDT Leonora Lange MD [facility] [place]NAL ZIP [address] [address] from Last 3 Months or Most Recently Relevant to Health Maintenance Advance Directives Documents on File Type Date Recorded Patient Assurance Senior Manager Expl anation Healthcare Directive 04/12/2022 04/12/20, 04/12/2022 [...] Code Status Discussion: Reviewed Preferences Care Teams Scientist Electronics Relationship Specialty Start Date End Date Leonora Lange MD [address] [place] [address] PCP - General Family Practice 07/19/11 Laila Osullivan MD [address] [place] [address] Surgery - General 10/20/21 Dimple Okeefe MD [address] [place] [address], [id number] [place] [address] Oncology 11/16/21
--- OUTSIDE RECORDS SUMMARY | 2024-02-29 09:18 | XMS_ITS | Data Portability ---
Author Organization KAREN - [facility] Address [address] [place] [address] [place] [address] Assessment No assessment recorded. Plan of Treatment Reminders Order Date Submit Date Provider Last Modified By Organization Details Last Modified Time Details Appointments None recorded . Lab C diff toxin A+B, qualitat stuart, stool 2023 024 [email or web address] [address] [place] [address] [place], [address], 4 15:28:52 CMP, serum or plasma 2023 024 [facility], [address] [place] [address], [address], 4 15:30:00 TSH, serum, reflex free T4 2023 024 [facility], [address] [place] [address], [address], 4 15:30:09 H pylori Ag, stool 2023 024 [facility], [address] [place] [address], [address], 4 15:29:27 CBC w/ auto diff 2023 024 [facility], [address] [place], [place] [address], [address], 4 15:29:37 hemoglob in A1C/hemo globin total, QN, blood 2023 024 [email or web address] [place] [facility], [address] [place], [place] [address], [address], 4 15:29:49 O&P (ova & parasite s), stool 2023 024 [facility], [address] [place], [place] [address], [address], 4 08:05:59 C diff toxin A+B, qualitat stuart, stool 2023 024 [facility], [address] [place], [place] [address], [address], 4 15:53:41 gastroin testinal pathogen s panel, PCR, stool 2023 024 [facility], [address] [place] [address] K[place], [address], 4 18:28:51 TSH, serum or plasma - Please note that patient also has BMP not only TSH 2020 021 [email or web address] Not available 1 14:53:56 BMP, blood 2020 021 [email or web address] [facility], [address] [place] [address] [place], [address], 1 21:22:34 Referral None recorded . Procedures None recorded . Surgeries None recorded . Imaging MAMMO, screenin g, digital, bilatera l 2023 024 [email or web address] Not available 4 15:29:15 US, breast, unilater al - Right breast ultrasou nd - Citizen Of [place]- speaking , MARIBEL 2020 021 [facility] Non Stat, [address], [place], [address], 2 10:45:31 MAMMO, screenin ggurwindera l - Citizen Of [place] speaking - interpre ter 2020 021 LUCIE Not available 15:04:48 Medication Orders Anti-Olivia rrheal (loperam lurdes) 2 mg tablet 2023 [address], [address], 4 16:27:54 ondanset karla 4 mg disinteg rating tablet [address], [address], 4 10:10:17 cholecal ciferol (vitamin D3) 25 mcg (1,000 unit) capsule [address], [address], 4 10:09:53 clotrima zole 1 % topical cream [email or web address], [address], 1 12:02:38 citalopr am 20 mg tablet [email or web address], [address], 1 12:02:28 Patient TargetsNo targets recorded. 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, Encounter Date: 10/15/2021 Results Created Date Observation Date Name Description Value Unit Range Abnormal Flag LastModifiedBy Organization Detail LastModifiedTime 01/07/20 21 01/06/2021 BMP, blood creatinine Not Available [facility] [address] [place], [address], 12/30/2020 21:21:45 01/14/20 21 01/13/2021 TSH, serum or plasm a TSH 1.14 Not Available [address], [address], 01/14/2021 12:20:37 01/14/20 21 01/13/2021 BMP, blood creatinine 0.62 Not Available [facility] [address] [facility], [address], 01/14/2021 11:08:15 06/25/20 21 06/16/2021 MAMMO , scree brandt, bilat eral No observ ation record ed. [email or web address] [facility] [address] [place], [address], 07/20/2021 19:51:04 07/16/20 21 07/01/2021 US, breas t, unila teral No observ ation record ed. [email or web address] [facility] Non Stat [address] [facility] [place], [address], 07/20/2021 19:50:36 10/11/19 22 10/08/2021 MAMMO , diagn ostic , digit al, unila teral No observ ation record ed. Not Available 10/15/2021 10:36:53 10/15/19 22 10/11/2021 biops y, breas t, w/ ultra sound bob nce (PROC ) No observ ation record ed. Not Available 10/15/2021 13:42:21 11/01/19 22 10/27/2021 MRI, breas t, bilat eral, w/wo contr ast No observ ation record ed. [email or web address] Not Available 11/01/2021 13:23:53 Result Notes None recorded. Problems Name Status Onset Date Resolution Date Notes Provider Name and Address Organization Details Recorded Time Depressive disorder Active 021 Sharmin Zhao NP [address] [place], [address] , [employer] 02/17/2021 11:32:16 Cyst of left breast Active 021 benign simple cyst 4 o'clock 8cm from the nipple, measuring 9mm (per L breast U/S 07/01/21) Sharmin Zhao NP [address] [place], [address] , [employer] 07/20/2021 19:50:29 Malignant neoplasm of female breast Active 024 Malignant neoplasm of lower-outer quadrant of right breast of female, estrogen receptor negative 10/27/2021 Cancer Staging: Clinical: [place] [address] [place] [address], [address] , [employer] 01/18/2024 23:21:12 Problem Notes None recorded. Procedures Surgical History Date Name Laterality Status Provider Name and Address Organization Details Recorded Time 12/25/19 23 Appendectomy completed [facility]IN [facility] [place] [facility] [place], [address], [employer] 01/18/2024 23:32:36 05/11/20 22 lumpectomy of right breast completed COLLIN [facility]ONSO [place] [facility] [place], [address], [employer] 01/18/2024 23:35:21 10/02/19 20 Date of Last Mammogram completed Sharmin Zhao NP [address] [facility], [address], [facility] 02/17/2021 11:38:30 01/31/20 16 Date of Last Pap Smear completed Sharmin Zhao, RIC [address] [facility] [place], [address], [facility] [employer] [facility] 02/17/2021 11:37:41 cholecystectomy completed Sharmin Zhao, RIC [address] [facility] [place], [address], [facility] [employer] [facility] 02/17/2021 11:35:26 Repair bladder defect completed Sharmin Zhao, RIC [address] [facility] [place], [address], [facility] [employer] [facility] 02/17/2021 11:36:40 Imaging Results Imaging Date Name Status LastModified by Organiz [facility] Details LastModified Time 06/16/2021 MAMMO, screening, bilateral completed [facility] [address] [place], [address], 07/20/2021 19:51:04 07/01/2021 US, breast, unilateral completed [facility] Non Stat [address] [place] [address], [address], 07/20/2021 19:50:36 10/08/2021 MAMMO, diagnostic, digital, unilateral completed Information not available 10/15/2021 10:36:53 10/11/2021 biopsy, breast, w/ ultrasound guidance (PROC) completed Information not available 10/15/2021 13:42:21 10/27/2021 MRI, breast, bilateral, w/wo contrast completed [email or web address] Information not available 11/01/2021 13:23:53 Procedure Notes None recorded. Medical Equipment None [...] Not Available Not Available Vitals Date Recorded Heart rate Body weight Body mass index (BMI) Body height Systolic blood pressure Diastolic blood pressure Provider Name and Address Organization Details Last Updated DateTime 1 72 /min 57610.2 g 34.7 kg/m2 154.94 cm 124 mm[Hg] 70 mm[Hg] Letty Hortop [place] Q[place]ary 20:36:20 Date Recorded Body height Body mass index (BMI) Body weight Provider Name and Address Organization Details Last Updated DateTime 02/17/2021 154.94 cm 34 kg/m2 04751.63 g Sharmin Zhao, RIC [address] [place], [address], [facility] [employer] 02/17/2021 11:47:17 Date Recorded Body height Body mass index (BMI) Body weight Heart rate Systolic blood pressure Diastolic blood pressure Provider Name and Address Organization Details Last Updated DateTime 1 154.94 cm 36.8 kg/m2 06385.5 1 g 59 /min 108 mm[Hg] 80 mm[Hg] Sharmin Zhao NP [address] [place], [address], [facility] [employer] 1 12:01:32 Date Recorded Body weight Body mass index (BMI) Body height Respiratory rate Oxygen saturation Oxygen saturation in Arterial blood by Pulse oximetry Body temperature Heart rate Systolic blood pressure Diastolic blood pressure Provider Name and Address Organization Details Last Updated DateTime 4 82394.6 5 g 30.4 kg/m2 154.94 cm 22 /min 99 % 99 % 96.4 [degF] 62 /min 138 mm[Hg] 84 mm[Hg] Ayna Cavazos [facility] [employer] 4 16:32:39 Date Recorded Body height Body mass index (BMI) Body weight Body temperature Oxygen saturation Oxygen saturation in Arterial blood by Pulse oximetry Heart rate Systolic blood pressure Diastolic blood pressure Provider Name and Address Organization Details Last Updated DateTime 4 154.94 cm 31.5 kg/m2 70135.2 1 g 96.3 [degF] 98 % 98 % 64 /min 141 mm[Hg] 86 mm[Hg] Mineishan montoya [facility] [employer] 4 10:09:12 Date Recorded Systolic blood pressure Diastolic blood pressure Provider Name and Address Organization Details Last Updated DateTime 05/17/2017 110 mm[Hg] 69 mm[Hg] Not Available [facility] 04/20/2020 12:57:53 Date Recorded Systolic blood pressure Diastolic blood pressure Provider Name and Address Organization Details Last Updated DateTime 01/14/2019 118 mm[Hg] 72 mm[Hg] Not Available [employer] 0 04/20/2020 12:57:53 Date Recorded Systolic blood pressure Diastolic blood pressure Provider Name and Address Organization Details Last Updated DateTime 10/12/2017 137 mm[Hg] 86 mm[Hg] Not Available [employer] 0 04/20/2020 12:57:53 Social History Question Answer Notes LastModified by Organizat ion Details LastModified Time Tobacco Smoking Status Never Smoker Letty menard [facility] [employer] [facility] 12/30/2020 20:32:17 What Is Your Level Of [...] mL dose 12/16/2020 completed COLLIN ALONSO MD [address] [place], [address], [facility] [employer] 12/14/2023 17:14:28 COVID-19, mRNA, LNP-S, PF, 30 mcg/0.3 mL dose 01/06/2021 completed COLLIN ALONSO MD [address] [place], [address], [facility] [employer] 12/14/2023 17:14:29 COVID-19, mRNA, LNP-S, PF, 30 mcg/0.3 mL dose 09/23/2021 completed COLLIN ALONSO MD [address] [place], [address], [facility] [employer] 12/14/2023 17:14:29 Pneumococcal conjugate PCV20, polysaccharide [id number] conjugate, adjuvant, PF 12/22/2022 completed COLLIN ALONSO MD [address] [place], [address], [facility] [employer] 12/14/2023 17:14:29 COVID-19, mRNA, LNP-S, bivalent, PF, 30 mcg/0.3 mL dose 12/22/2022 completed COLLIN ALONSO MD [address] [place] [address] Leonardo Mendoza [place], [address], [facility] 12/14/2023 17:14:29 Tdap 10/12/2018 completed COLLIN ALONSO MD [address] [place] [address] Marcela [place], [address], [facility] 12/14/2023 17:14:29 Tdap 03/13/2009 completed COLLIN ALONSO MD [address] [place] [address] Cristiano [place], [address], [facility] 12/14/2023 17:14:29 Influenza, seasonal, injectable, preservative free 07/29/2011 completed COLLIN ALONSO MD [address] [place] [address] Leonardo Cristiano [place], [address], [facility] [employer] [facility] 12/14/2023 17:14:29 Hep B, adult 11/23/2021 completed MD Connie ALAS[address] [place] [address] [place], [address], [facility] 12/14/2023 17:14:29 Hep B, adult 12/30/2021 completed COLLIN ALONSO MD [address] [place] [address] [place], [address], [facility] 12/14/2023 17:14:29 influenza, injectable, quadrivalent, preservative free 10/12/2018 completed [facility] [place], [address], [facility] 12/14/2023 17:14:29 influenza, injectable, quadrivalent, preservative free 12/22/2022 completed COLLIN ALONSO [facility] [place], [address], [facility] 12/14/2023 17:14:29 Past Encounters Encounter ID Performer Location Encounter Start Date Encounter Closed Date Diagnosis/Indication Diagnosis SNOMED-CT Code [id number] Ila Jimenez, RIC [facility] [address] [place] [address] CRISTIANO MARCELAKAREN MARRERO [id number] 12/30/2020 20:08:10 12/31/2020 11:00:16 Active or passive immunization 481510272 Tinea pedis 7161975 Plantar fa sciitis of right foot 28084117922778 101 Depressive disorder 4331 0844 Family duglas ing surveillance 774967364 Constipation 99593503 Paresthesia 29252443 [id number] Sharmin Zhao NP [facility] [address] [place] [id number] 02/17/2021 11:18:39 02/17/2021 14:15:54 Fatigue 06491106 [id number] Sharmin Zhao NP [facility] [address] [place] [address] 04/21/2021 11:35:46 04/21/2021 12:34:23 Screening for malignant neoplasm of breast [id number] Sharmin Zhao NP [facility] [address] [place] [id number] 09/29/2021 14:28:12 10/14/2021 14:46:54 Pain of breast 59388263 [id number] COLLIN ALONSO MD [facility] [address] [place] [id number] 12/14/2023 16:15:37 12/14/2023 17:04:28 Nausea, vomiting and diarrhea 3178403 Diarrhea 61467080 [id number] COLLIN ALONSO MD [facility] [address] [place] [id number] 01/18/2024 10:03:22 01/18/2024 10:32:57 Diarrhea 81211579 Epigastric pain 92967501 History of malignant neoplasm of breast 757712255 Diabetes m ellitus screening 361383679 Elevated blood-pressure reading without diagnosis of hypertension 880606891 Health Concerns Section Related Observation LastModified by Organization Detai ls LastModified Time None Recorded Concern Status LastModified by Organization Details LastModified Time None Recorded Advance Directives Directive None Recorded Payers Encounter Date Sequence Insurance Name Policy Number Policy Zhang Covered Member ID Zhang Member ID Guarantor Name 01/18/2024 SLIDING FEE SCHEDULE - DISCOUNT Allison Duckworth 12/14/2023 SLIDING FEE SCHEDULE - DISCOUNT Allison Duckworth 09/29/2021 SLIDING FEE SCHEDULE - DISCOUNT Allison Duckworth 04/21/2021 SLIDING FEE SCHEDULE - DISCOUNT Allison Duckworth 02/17/2021 SLIDING FEE SCHEDULE - DISCOUNT Allison Duckworth 12/30/2020 SLIDING FEE SCHEDULE - DISCOUNT Allison Duckworth Notes Date Note Type Note Provider Name and Address Organization Details Recorded Time 12/30/2020 text/html HPI Notes: Patie nt here with multiple concerns, including alternating constipation and diarrhea, with fecal urgency after drinking coffee. No treatment tried. Also with frequent burning and numbness of hands and feet, especially when trying to sleep. No treatment tried. History of depression, not taking med x long time because she ran out. 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 Also with intermittent pain right heel, better with massage. Worried about diabetes or similar because of her symptoms. Ila Jimenez NP [address] [place], [address], [facility] [employer] 12/31/2020 15:42:48 02/17/2021 text/html HPI Notes: 45 y. o. F established patient evaluated by phone in follow up She saw Dr. Freeman about 2 months ago with concerns due to increased fatigue/anhedonia in the mornings (as well as other concerns). She started Citalopram 20mg QD, but stopped taking it as she did not notice a difference in her mood or energy level. She reports that she jacklyn with her stress by going to work and talking to others. PHQ2=1 today She drinks coffee daily and has an energy drink occasionally She reports a lot of stress due to working and caring for son with autism He wakes her up often at night, so she is not sleeping very well Diet: I eat everything - I should eat healthier Works 11:30am-9pm, 5-9pm - 32 hours per week A BMP and TSH ~1 month ago were normal Nexplanon removed/replaced at [facility] 1.5 months ago Overdue for pap smear, last mammogram 1.5 years ago Denies fever, chills, weight changes, dizziness, chest pain Sharmin Zhao, RIC [address] [place], [address], [place] [employer] 02/17/2021 12:03:40 04/21/2021 text/html HPI Notes: 45 y. o. F presents for MARIBEL visit Last mammogram date and result: 10/2019 Personal history of breast issues or concerns: None - had some right axillary pain previously which resolve when she stopped wearing bras with underwires Current Breast ROS: denies breast lumps, pain, nipple discharge/itching, rash, change in appearance Family history of breast cancer: none Breast self awareness discussed - patient performs regularly Last pap date/result: 2015 - normal. Due now, but patient reports that she is bleeding History of abnormal pap smears: none Gynecologic history: LMP: irregular due to implant placed 3 months ago Gynecologic ROS: denies vaginal discharge, itching, odor, irritation, pelvic pain, abnormal bleeding Patient feeling much better since supplementing vitamin D. Sleeping well and improved fatigue. Only complaint is that her hands and feet occasionally fall asleep when she's sleeping in a particular position. Resolves with movement. Denies occurrence during the day. Always resolves with movement. Sharmin Zhao NP [address] [place], [address], [facility] [employer] 04/21/2021 13:26:47 09/29/2021 text/html HPI Notes: 45 y. o. established patient with history of left breast cyst, depression Presents due to right breast pain for the last three months that started around the time of her last mammogram. Describes pain as burning, pinching - starts in her right axilla and extends to her right lower breast. Denies nipple discharge, skin changes, lumps. Previously she had right axillary pain, which was relieved when she stopped wearing bras with underwires. Mammogram and left breast U/S done 06/2021 - left breast cyst identified - no concern for malignancy. Patient denies family history of breast cancer. Denies fever, chills, shortness of breath, trauma to chest Nexplanon removed recently - no menses since. No concern for today. Sharmin Zhao NP [address] [place], [address], [facility] [employer] 09/29/2021 15:20:35 12/14/2023 text/html HPI Notes: 47 yo u here with nausea and vomiting for 2-3 [...] LMP Nov 2021 COLLIN ALONSO MD [address] [facility] [place], [address], [facility] [employer] 12/14/2023 17:20:15 01/18/2024 text/html HPI Notes: 47 yo peruvian speaking patient here for follow up of [...] Had stable pulmonary nodule. COLLIN ALONSO MD [address] [facility] [place], [address], [facility] [employer] 01/18/2024 23:49:50 OBGyn Episode No OBEpisode recorded.
== END 2024-02-22 08:14 | disposition home or self-care (01) ==
LOC: MAMMO 02-29 09:16
PROVIDERS: PCP Family Medicine; Visit Provider Family Medicine
DX: Z12.31 Encounter for screening mammogram for malignant neoplasm of breast (principal); R92.2 Inconclusive mammogram; Z85.3 Personal history of malignant neoplasm of breast
CPT/HCPCS: 77063; 77067; T1013